=== PATIENT | male | born 1935 | race Caucasian/White ===

== ENCOUNTER 2021-10-26 07:20 | Day surgery (SDC) | payer MEDICARE, BC ==
[2021-10-21 15:07] VITALS: BMI 27.4
[2021-10-26 09:38] VITALS: BP 107/51; TEMP 97.5
[2021-10-26] MEDS ORDERED: Iopamidol 300 61% 50 ML VIAL FS ONE (15:28)
== END 2021-10-26 09:55 | disposition home or self-care (01) ==
LOC: SPEC 07:20
PROVIDERS: ATTEND Specialist
PROC: B51W1ZZ Fluoroscopy of Dialysis Shunt/Fistula using Low Osmolar Contrast (ICD-10-PCS; principal; 2021-10-26)
DX: N18.6 End stage renal disease (principal); Z99.2 Dependence on renal dialysis
CPT/HCPCS: 36901; Q9967